=== PATIENT | female | born 1930 | race Caucasian/White ===

== ENCOUNTER 2017-01-24 15:20 | Inpatient (IN) | payer MEDICARE, BC ==
[~2017-01-24] VITALS: Ht 165.1 cm; Wt 70.6 kg
--- NOTE | ~2017-01-24 | CON ---
PATIENT'S NAME: MARTA ODOM [facility] AGE: 86 Y [address] ROOM: [place] [address] LOCATION: GPCU ADMIT DATE: 01/24/2017 Consultation DISCHARGE DATE: FAMILY PHYSICIAN: PHYSICIAN, UNKNOWN ATTENDING PHYSICIAN: Blanka RÍOS DATE OF CONSULTATION: 01/24/2017 REFERRING PHYSICIAN: TRES MOULTON MD HISTORY OF PRESENT ILLNESS: Marta Odom is a very pleasant 86-year-old female, who was transferred from an outlying facility in view of history of GI bleed. The patient was admitted to her local hospital on the morning of January 22, 2017, with history of "maroon and red stools" with a hemoglobin of around 10 on admission, which dropped to around 8. She received 2 units of packed RBCs. This morning, her hemoglobin was 10, but was given another 2 units of packed RBCs along with 1 unit of fresh frozen plasma and transferred here for further evaluation and management. One day after admission, she underwent colonoscopy by Dr. Flores, whereby she was found to have a "severe diverticulosis" as per history, and an NG tube was inserted which revealed bilious fluid and therefore upper endoscopy was not carried out. She was transferred here for review of ongoing rectal bleeding, but has been stable since after admission with stable vital signs and being placed on Protonix. The patient denies any previous similar episodes, however, does take nonsteroidals for a long time in the form of a combination of medicine called diclofenac and misoprostol twice daily for many years. She takes occasional ibuprofen. PAST MEDICAL HISTORY: 1. Coronary artery disease. 2. Rheumatoid arthritis. 3. Colon polyps. 4. Nicotine abuse. PAST SURGICAL HISTORY: Coronary stents, hysterectomy. MEDICATIONS: On admission included: 1. Lipitor. PATIENT'S NAME: MARTA ODOM [facility] AGE: 86 Y [address] ROOM: [place] [address] LOCATION: GPCU ADMIT DATE: 01/24/2017 Consultation DISCHARGE DATE: FAMILY PHYSICIAN: PHYSICIAN, UNKNOWN ATTENDING PHYSICIAN: Blanka RÍOS 2. Coreg. 3. Zetia. 4. Aspirin 81 mg daily. 5. Evista. 6. Folic acid. 7. A nonsteroidal as noted above. ALLERGIES: NONE KNOWN. SOCIAL HISTORY: Long-standing nicotine abuse. Denies alcohol abuse. REVIEW OF SYSTEMS: The 10-point review of system otherwise negative. PHYSICAL EXAMINATION: GENERAL: Elderly female, in no acute distress, afebrile. VITAL SIGNS: As noted in nursing sheet are stable. HEENT: Atraumatic and normocephalic. Pupils are round and reactive. Nonicteric sclerae. NECK: Supple. No palpable nodes. No thyromegaly. CHEST: Clear to auscultation. HEART: S1, S2 normal. ABDOMEN: Soft and nondistended without palpable masses or tenderness. ASSESSMENT AND PLAN: An 86-year-old female with history and findings suggestive of diverticular bleed with colonoscopy as noted above at another facility. At this point, she seems to be stable with stable vital signs and stable hematocrit with further evaluation to rule out peptic ulcer disease, and an upper endoscopy will be indicated for completeness sake. Further considerations and recommendations pending her clinical course. Thank you for this consult. TRES MOULTON MD AM/vesna /[id number] d: 01/24/17 2311 t: 01/25/17 0733, CONSULTATION REPORT
--- NOTE | ~2017-01-24 | DS ---
PATIENT'S NAME: MARTA HASSAN [facility] AGE: 86 Y [address] ROOM: [address] [address] LOCATION: GPCU ADMIT DATE: 01/24/2017 Discharge Summary DISCHARGE DATE: 01/26/2017 FAMILY PHYSICIAN: Star Sandoval MD ATTENDING PHYSICIAN: Blanka Jones ADMITTING DIAGNOSIS: Acute blood loss anemia. DISCHARGE DIAGNOSIS: Acute blood loss anemia, most likely secondary to lower gastrointestinal bleed. SECONDARY DIAGNOSES: 1. Chronic obstructive pulmonary disease. 2. Rheumatoid arthritis. 3. History of coronary artery disease. PROCEDURES: EGD and GI bleed scan. CONSULTATION: Gastroenterology. HISTORY OF PRESENT ILLNESS: The patient is an 86-year-old female with past medical history of CAD, status post CABG, and rheumatoid arthritis, who presents from with GI bleed. The patient initially presented to with episode of hematochezia. The patient's initial hemoglobin at the outside hospital was 10.1, but however, went down to 8.9 and received 2 units of packed red blood cells and 1 unit of FFP. The patient had colonoscopy by Dr. Flores, who is the general surgeon. It shows no active bleeding, but showed some old blood and diverticulosis. However, the patient was noted to have another episode of hematochezia and dark stool and was transferred to our facility for GI evaluation. HOSPITAL COURSE: The patient was admitted. En route, the patient received 2 additional units of packed red blood cells. The patient was seen by GI physician during her stay. She has had EGD which was unremarkable. The patient's hemoglobin was stable throughout. During her stay, there was no sign of active bleeding. The patient also had red blood cell tag GI scan, which was negative. The patient was also noted to have oxygen requirement and has had overnight oximetry. The patient failed overnight oximetry and also was noted to require oxygen on rest. Apparently, this has been going on even as an outpatient, but the patient has refused to use oxygen in the past. A long discussion made with family and the patient about use of oxygen. The patient agreeable to use oxygen. [id number] was made with the patient for oxygen use. PATIENT'S NAME: MARTA HASSAN [facility] AGE: 86 Y [address] ROOM: [address] [place], [place] [address] [facility] ADMIT DATE: 01/24/2017 Discharge Summary DISCHARGE DATE: 01/26/2017 FAMILY PHYSICIAN: Star Sandoval MD ATTENDING PHYSICIAN: Blanka Jones On discharge, discussion was made about the use of NSAID. The patient is on diclofenac. Discontinue the diclofenac on discharge. The patient to follow up with her primary care physician with repeat CBC in 5 days. On discharge, the patient's hemoglobin was 10.3. CONDITION: Stable. DISPOSITION: Home. DISCHARGE MEDICATIONS: Please see MAR. DISCHARGE INSTRUCTIONS: To follow up with primary care physician with repeat CBC in 5 days. To continue home oxygen use. If the patient has another episode of hematochezia, to go to the emergency department. FOLLOWUP: Follow up with primary care physician as an outpatient. Greater than 30 minutes was spent on discharge planning. MD BESSIE HOPKINS/vesna /[id number] d: 01/27/170 t: 01/30/17 1750, DISCHARGE SUMMARY
--- NOTE | ~2017-01-24 | PUL ---
PATIENT'S NAME: MARTA HASSAN [facility] AGE: 86 Y [address] ROOM: [address] [address] LOCATION: GPCU ADMIT DATE: 01/24/2017 Pulmonary DISCHARGE DATE: 01/26/2017 FAMILY PHYSICIAN: Star Sandoval MD ATTENDING PHYSICIAN: Blanka Jones NAME OF PROCEDURE: Overnight Pulse Oximetry DATE OF PROCEDURE: January 25 to January 26, 2017 REASON FOR EXAM: Nocturnal hypoxemia RESULTS: The test was started on room air, but supplemental oxygen was added and changed many times at night. The test was finished with the patient being on supplemental oxygen at 2 liters/minute. The recording time was 9 hours, 33 minutes, and 43 seconds, with a total valid sampling time of 9 hours, 29 minutes, and 36 seconds. The highest pulse was 127, lowest pulse was 63, with a mean pulse of 75. The highest SpO2 was 99%, lowest SpO2 was 40%, with a mean SpO2 of 91.6%. The patient spent 58 minutes, 52 seconds with SpO2 less than 89%, representing 10.3% of the total sleep time. The desaturation event index was normal at 2.2. PHYSICIAN INTERPRETATION: The patient has evidence of significant nocturnal hypoxia and would qualify for supplemental oxygen as per Medicare criteria. MD TAHIR COFFMAN/carmina /[id number] dtt: 01/29/17 1228 , GERSON NAVARRO dtd: 01/28/17 0853
--- NOTE | ~2017-01-24 | HP ---
PATIENT'S NAME: MARTA HASSAN [facility] AGE: 86 Y [address] ROOM: [place] [address] LOCATION: [facility] ADMIT DATE: 01/24/2017 History & Physical DISCHARGE DATE: FAMILY PHYSICIAN: PHYSICIAN, UNKNOWN ATTENDING PHYSICIAN: Blanka RÍOS DATE OF SERVICE: CHIEF COMPLAINT: GI bleed. HISTORY OF PRESENT ILLNESS: The patient is an 86-year-old female with past medical history of CAD, status post CABG and PCI; rheumatoid arthritis; who presents here from [facility] with GI bleed. The patient initially presented to [facility] on Wednesday with episode of hematochezia. The patient was admitted. Her initial hemoglobin was 10.1, but however, serial hemoglobin shows a drop to 8.9. The patient then received 2 units of packed red blood cell and 1 unit of FFP. The patient was seen by Dr. Flores, who is a general surgeon, had colonoscopy done yesterday which showed no signs of active bleeding and showed old blood and diverticulosis per the Betty HERNANDEZ. However, the patient was noted to have another episode of hematochezia and dark tarry stool this morning. She was also noted to have orthostatic hypotension and was then transferred to our hospital for GI evaluation. The patient reports that she has epigastric aching/burning pain that has been going on for a few days. She also reports of nausea and vomiting, nonbloody. She takes aspirin and diclofenac twice a day for close to 4 years. She reports that she takes it regularly and not p.r.n. The patient denies chest pain, shortness of breath, headache, productive cough, diarrhea, and orthopnea. PAST MEDICAL HISTORY: CAD, status post CABG and PCI in 2008; rheumatoid arthritis; former smoker; chronic hypoxia. Daughter who is an RN reports that the patient's O2 saturation is usually in the mid 80s. The patient does not use oxygen. PAST SURGICAL HISTORY: Hysterectomy, cataract, CABG, and colonoscopy. FAMILY HISTORY: Father had a bladder cancer and also abdominal aortic aneurysm. Mother had rectal cancer and breast cancer. SOCIAL HISTORY: PATIENT'S NAME: MARTA HASSAN [facility] AGE: 86 Y [address] ROOM: [place] [id number] LOCATION: [facility] ADMIT DATE: 01/24/2017 History & Physical DISCHARGE DATE: FAMILY PHYSICIAN: PHYSICIAN, UNKNOWN ATTENDING PHYSICIAN: Blanka RÍOS The patient lives with her , who is 90-year-old. She is a former smoker, quit smoking 4 years ago. Denies drinking. MEDICATIONS: Currently being reconciled. REVIEW OF SYSTEMS: All systems are reviewed and are negative except for what I mentioned. PHYSICAL EXAMINATION: VITAL SIGNS: Afebrile. Blood pressure 180/77, heart rate of 69, respiratory rate of 15, and saturating 95% on 2 L. GENERAL APPEARANCE: The patient is lying on the bed in no acute distress. HEENT: Head, normocephalic and atraumatic. Extraocular muscles are intact. Sclerae nonicteric. Nose: No nasal discharge. Ears: No ear discharge. Oral Cavity: Moist oral mucosa. CHEST: Clear to auscultation bilaterally. HEART: Regular rate and rhythm. No murmurs, rubs, or gallops. ABDOMEN: Mild epigastric tenderness to palpation. No rebound, no guarding. Bowel sounds are present. SKIN: Warm to touch. EXTREMITIES: Capillary refill within normal limits. No edema. Lower extremity varicose veins. [employer]: Alert and oriented x3. Motor and sensory grossly intact. MUSCULOSKELETAL: Range of motion intact. No obvious joint effusion noted. LABORATORY DATA: Lab done at [facility] shows white blood cell count of 5.6, hemoglobin of 10.4, platelets of 206. Sodium of 142, potassium 3.8, bicarb of 32, creatinine 0.7, and BUN of 16. Note should be made that BUN was 35 on day of admission, on Wednesday. Blood glucose of 90. ASSESSMENT AND PLAN: 1. Active blood loss anemia. Etiology is most likely secondary to gastrointestinal bleed. Source of gastrointestinal bleed most likely secondary to upper. The patient has received colonoscopy and was unrevealing. The patient continued to have hematochezia. On admission, the patient's BUN was 35 at the outside hospital and also complains of epigastric tenderness. The patient is also on NSAIDs, diclofenac 75 mg b.i.d., which puts the patient at risk for peptic ulcer disease. We will continue the patient on Protonix drip. The patient has received 80 mg IV bolus at the outside hospital, we will continue 8 mg/hour IV drip. We will discontinue NSAID use. We will check CBC now. The patient has received a total of 4 units of packed red blood cells and 1 unit of FFP at the outside hospital. We will continue to check serial hemoglobin q.8 PATIENT'S NAME: MARTA HASSAN [facility] AGE: 86 Y [address] ROOM: [place] [address] LOCATION: [facility] ADMIT DATE: 01/24/2017 History & Physical DISCHARGE DATE: FAMILY PHYSICIAN: PHYSICIAN, UNKNOWN ATTENDING PHYSICIAN: Blanka RÍOS hours. To transfuse if hemoglobin is less than 8 or patient showing active bleeding with compromised hemodynamics. Discussed the case with Gastrointestinal. The patient to be n.p.o. for possible EGD tomorrow. 2. Gastrointestinal bleed. See above. 3. Coronary artery disease, status post coronary artery bypass graft and percutaneous coronary intervention. According to daughter, the patient had CABG in 2008 and also stent. Thus, we will continue the patient on aspirin and Lipitor. If blood pressure is stable, we will continue beta fawn with holding parameters. The patient is currently stable. 4. Rheumatoid arthritis. We will hold diclofenac. Will use Tylenol as needed for pain control. 5. Chronic hypoxic respiratory failure. Etiology most likely secondary to chronic obstructive pulmonary disease. However, chronic obstructive pulmonary disease has never been diagnosed and/or worked up for the patient. We will evaluate oxygen demand upon discharge. Long discussion made with the patient about the importance of oxygen use. 6. Hyperlipidemia. Continue Lipitor. 7. Osteoporosis. The patient is currently on Evista. We will hold the Evista for now. Greater than 60 minutes was spent on the patient's care. 50% of the time was spent in discussing the case with Betty HERNANDEZ, from [facility]. I also discussed the case with Dr. Aleman from our GI department. I also discussed the case with daughter and patient. All questions were answered to family and the patient's satisfaction. We will admit the patient for GI bleed evaluation with possible EGD. Code status discussed on admission, code status is DNR. MICHOACANO MD CJ REES/vesna /[id number] D: [id number] T: [id number] HISTORY & PHYSICAL
[2017-01-24] MEDS ORDERED: ASPIRIN (CHILDR81 MG PO (15:57)
[2017-01-24] MEDS ORDERED: LIPITOR20 M1 PO (15:58)
[2017-01-24] MEDS ORDERED: CALCIUM 600 +1 EA16 PO (16:00)
[2017-01-24] MEDS ORDERED: FOLIC ACID1 MG PO (16:01)
[2017-01-24] MEDS ORDERED: COREG 3.1253.125 MG PO (16:01)
[2017-01-24] MEDS ORDERED: ZETIA10 MG PO (16:01)
[2017-01-24] MEDS ORDERED: EVISTA60 MG PO (16:03)
[2017-01-24] MEDS ORDERED: PRESERVISION L1 EACH PO (16:03)
[2017-01-24] MEDS ORDERED: DICLOFENAC-MIS1 EAC2 PO (16:04)
[2017-01-24] MEDS ORDERED: ASPIRIN LO-DOSE81 MG PO (16:06)
[2017-01-24] MEDS ORDERED: ADULTS 50+ MUL1 EACH PO (16:06)
[2017-01-24 17:46] LABS: HEMATOCRIT 33.7 % (30.0-46.0); HEMOGLOBIN 11.1 g/dL (10.0-15.0)
[2017-01-25 01:25] LABS: HEMATOCRIT 29.9 % (30.0-46.0); HEMOGLOBIN 9.9 g/dL (10.0-15.0)
[2017-01-25 06:12] LABS: BASOPHIL # 0.1 K/uL (0.0-0.2); BASOPHIL % 0.9 %; EOSINOPHIL # 0.2 K/uL (0.0-0.5); EOSINOPHIL % 2.8 %; HEMATOCRIT 31.7 % (30.0-46.0); HEMOGLOBIN 10.4 g/dL (10.0-15.0); IMMATURE GRANULOCYTE % 0.2 %; LYMPHOCYTE # 1.1 K/uL (0.8-4.0); LYMPHOCYTE % 17.6 %; MCH 30.8 pg (27.0-34.0); MCHC 32.8 gm/dL (32.0-36.5); MCV 93.8 fl (83.0-98.0); MONOCYTE # 0.6 K/uL (0.0-1.0); MONOCYTE % 9.2 %; MPV 10.7 fl (9.4-12.4); NEUTROPHIL # (ANC) 4.5 K/uL (1.8-7.8); NEUTROPHIL % 69.3 %; NRBC % 0 /100WBC (0-0.00); PLATELET COUNT 215 K/uL (150-450); RBC 3.38 M/uL (3.00-5.00); RDW-CV 16.1 % (11.9-14.6); WBC 6.5 K/uL (4.0-11.0)
[2017-01-25 06:26] LABS: ALBUMIN 2.5 gm/dL (3.5-5.0); ALK PHOS 41 IU/L (33-138); ALT 19 IU/L (12-78); ANION GAP 8.9 (10.0-19.0); AST 22 IU/L (10-40); BLOOD UREA NITROGEN 18 mg/dL (6-24); CALCIUM 7.6 mg/dL (8.5-10.5); CHLORIDE 111 mMol/L (96-110); CO2 29 mMol/L (22-32); CREATININE 0.6 mg/dL (0.5-1.1); ESTIMATED GFR (MDRD EQUATION) > 60; MAGNESIUM 2.1 mg/dL (1.8-2.6); POTASSIUM 3.9 mMol/L (3.7-5.1); SODIUM 145 mMol/L (135-145); TOTAL BILIRUBIN 0.5 mg/dL (0.0-1.5); TOTAL PROTEIN 5.1 g/dL (6.0-8.4)
[2017-01-25] MEDS ORDERED: METHOTREXATE2.5 MG PO (09:58)
[2017-01-25] MEDS ORDERED: MOMETASONE FURO45 GM TOP (09:59)
[2017-01-25 10:01] LABS: HEMATOCRIT 34.1 % (30.0-46.0); HEMOGLOBIN 11.2 g/dL (10.0-15.0)
[2017-01-25] MEDS ORDERED: NORCO 5-325 TA1 EACH PO (10:01)
--- NOTE | 2017-01-25 16:35 | NUR ---
D:Patient left for Endo at 1010 per wheelchair. Patient verbelizes understanding of procedure she was having done. At 1315, returned to room from PACU. Negative EGD, took some biopsies. Has IV of NS infusing, is alert and orientated. P:Post EGD and bleeding scan
--- NOTE | 2017-01-25 16:49 | NUR ---
Significant Event:Patient had EGD today, negative. Having bleeding scan now. No stools today. Last Hgb this am-11.2. Hydrocodone twice for c/o leg pain. Up in room and to bathroom. Protonix drip off. Follow up:Monitor for bleeding
[2017-01-25 18:38] LABS: HEMATOCRIT 32.1 % (30.0-46.0); HEMOGLOBIN 10.5 g/dL (10.0-15.0)
--- NOTE | 2017-01-25 23:43 | NUR ---
significant event: Patient found by RT at 2200 without oxygen with sats of 45%, After being brought back from the bathroom at 0 by the aid and instructed by both the patient and the that the patient did not need the oxygen. 4L of oxygen was applied to the patient RT came and got the nurse, the patient was A/O x 3 but sleepy. Sats recovered to greater than 90% in less than 2 min and patient became more alert. All other VSS at the time. oxygen demand decreased from 4L to 1L with sats in the mid 90's.
[2017-01-26 04:08] LABS: BASOPHIL # 0.1 K/uL (0.0-0.2); BASOPHIL % 0.8 %; EOSINOPHIL # 0.1 K/uL (0.0-0.5); EOSINOPHIL % 1.2 %; HEMATOCRIT 31.5 % (30.0-46.0); HEMOGLOBIN 10.3 g/dL (10.0-15.0); IMMATURE GRANULOCYTE % 0.5 %; LYMPHOCYTE % 13.6 %; MCH 31.4 pg (27.0-34.0); MCHC 32.7 gm/dL (32.0-36.5); MONOCYTE # 0.6 K/uL (0.0-1.0); MONOCYTE % 7.8 %; MPV 10.9 fl (9.4-12.4); NEUTROPHIL # (ANC) 5.7 K/uL (1.8-7.8); NEUTROPHIL % 76.1 %; NRBC % 0 /100WBC (0-0.00); PLATELET COUNT 241 K/uL (150-450); RBC 3.28 M/uL (3.00-5.00); RDW-CV 15.8 % (11.9-14.6); WBC 7.4 K/uL (4.0-11.0)
[2017-01-26 04:25] LABS: ALBUMIN 2.7 gm/dL (3.5-5.0); ALK PHOS 61 IU/L (33-138); ALT 30 IU/L (12-78); AST 36 IU/L (10-40); BLOOD UREA NITROGEN 16 mg/dL (6-24); CALCIUM 7.5 mg/dL (8.5-10.5); CHLORIDE 111 mMol/L (96-110); CO2 29 mMol/L (22-32); CREATININE 0.5 mg/dL (0.5-1.1); ESTIMATED GFR (MDRD EQUATION) > 60; SODIUM 144 mMol/L (135-145); TOTAL PROTEIN 5.2 g/dL (6.0-8.4)
[2017-01-26 04:27] LABS: TOTAL BILIRUBIN 0.3 mg/dL (0.0-1.5)
--- NOTE | 2017-01-26 05:38 | NUR ---
Significant event: A/O x 3. Up with 1 assist. up to the bathroom last night and oxygen was not put back on. patient was found with sats in the low 40's on ra. put on 4L and sats came back up within minutes. patient on 1-2L o2 with sats in the 90's. no Bloody stools this shift.
[2017-01-26] MEDS ORDERED: PROVENTIL OR V6.7 GM INH (13:05)
--- NOTE | 2017-01-26 15:03 | NUR ---
Significant Event: A/O x3, cooperative with cares. VSS, SBPs 130-160s, HRs 70-80s, oxygen at 2 liters. Tylenol given at 0859 for c/o headache, relief noted. Red tag study completed this AM; results negative. Home oxygen set up by respiratory therapy. Dismissal instructions went over with patient et family, verbalized understanding. Dismissed to front lobby per w/c accompanied by transport staff et family Follow up:
--- NOTE | 2017-01-26 15:25 | NUR ---
Introduced self and role of care management to pt's son, she was sleeping. She and her are from [place] and still live in there own home. She is up able to care for herself and does not use any dme. A daughter is close who is a home health nurse but son denies any discharge needs. He is just wanting to get home if that is the plan. WIll assist as needed.
== END 2017-01-26 15:05 | disposition disaster alternative care site (69) | DRG 378 ==
LOC: GPCU 15:23
PROVIDERS: ADMIT Internal Medicine
PROC: 30233K1 Transfusion of Nonautologous Frozen Plasma into Peripheral Vein, Percutaneous Approach (ICD-10-PCS; principal; 2017-01-25)
PROC: 30233N1 Transfusion of Nonautologous Red Blood Cells into Peripheral Vein, Percutaneous Approach (ICD-10-PCS; principal; 2017-01-25)
PROC: 3E0F7GC Introduction of Other Therapeutic Substance into Respiratory Tract, Via Natural or Artificial Opening (ICD-10-PCS; principal; 2017-01-25)
PROC: 0DB68ZX Excision of Stomach, Via Natural or Artificial Opening Endoscopic, Diagnostic (ICD-10-PCS; principal; 2017-01-25)
DX: K92.1 Melena (principal); D62 Acute posthemorrhagic anemia; J96.11 Chronic respiratory failure with hypoxia; M06.9 Rheumatoid arthritis, unspecified; E78.5 Hyperlipidemia, unspecified; M81.0 Age-related osteoporosis without current pathological fracture; I25.10 Atherosclerotic heart disease of native coronary artery without angina pectoris; Z86.79 Personal history of other diseases of the circulatory system
CPT/HCPCS: A9560; C9113; J2405; J7030; J7040

== ENCOUNTER → 2017-01-24 | Outpatient (CLI) | payer MEDICARE, BC ==
[~2017-01-24] MED LIST: ADULTS 50+ MUL1 EACH PO; ASPIRIN (CHILDR81 MG PO; ASPIRIN LO-DOSE81 MG PO; CALCIUM 600 +1 EA16 PO; COREG 3.1253.125 MG PO; DICLOFENAC-MIS1 EAC2 PO; EVISTA60 MG PO; FOLIC ACID1 MG PO; LIPITOR20 M1 PO; METHOTREXATE2.5 MG PO; MOMETASONE FURO45 GM TOP; NORCO 5-325 TA1 EACH PO; PRESERVISION L1 EACH PO; PROVENTIL OR V6.7 GM INH; ZETIA10 MG PO
== END | disposition disaster alternative care site (69) ==
LOC: GAMB 13:30
DX: R53.1 Weakness (principal)
CPT/HCPCS: A0425; A0428